=== PATIENT | male | born 1995 | race Caucasian/White ===

== ENCOUNTER 2019-10-14 19:30 | Emergency (ER) | payer BC ==
[2019-10-14 19:55] VITALS: BP 146/88
[2019-10-14] MEDS ORDERED: Acetaminophen TAB* 325 MG PO ONE (20:55)
--- NOTE | 2019-10-14 21:06 | UC ---
Minor Trauma HPI - HPI Summary HPI Summary: 24 yo male slipped on ice around 4 pm today struck back of head no LOC moderate pain and severe nausea right after fall now only mild nausea and 4/10 pain was carrying keys in left hand sustained a PW palm of his left hand now with numbness LMF and painful ROM left MF he is right handed - History of Current Complaint Chief Complaint: UCGeneralIllness Stated Complaint: HEAD INJURY/PALM OF LEFT HAND LAC Time Seen by Provider: 10/14/19 20:12 Hx Obtained From: Patient Onset/Duration: Sudden Onset, Lasting Hours Severity Initially: Moderate Severity Currently: Mild Pain Intensity: 4 Pain Scale Used: 0-10 Numeric Mechanism Of Injury: Fall From A Standing Position Aggravating Factor(s): Movement - left fingers Alleviating Factor(s): Rest Associated Signs And Symptoms: Negative: Loss Of Consciousness, Ecchymosis, Swelling Body - Head: 1 - PW - Risk Factors Penetrating Injury Risk Factors: Negative - Allergies/Home Medications Allergies/Adverse Reactions: Allergies Allergy/AdvReac Type Severity Reaction Status Date / Time No Known Allergies Allergy Verified 10/14/19 19:48 Home Medications: Home Medications SUMAtriptan TAB* [Imitrex TAB*] 25 mg PO SEE INSTRUCTIONS 10/14/19 [History Confirmed 10/14/19] PMH/Surg Hx/FS Hx/Imm Hx Previously Healthy: Yes - Surgical History Surgical History: None - Family History Known Family History: Positive: Non-Contributory - Social History Alcohol Use: Occasionally Substance Use Type: None Smoking Status (MU): Never Smoked Tobacco Review of Systems All Other Systems Reviewed And Are Negative: Yes Constitutional: Positive: Negative Skin: Positive: Negative Eyes: Positive: Negative ENT: Positive: Negative Respiratory: Positive: Negative Cardiovascular: Positive: Negative Gastrointestinal: Positive: Nausea - mild Genitourinary: Positive: Negative Musculoskeletal: Positive: Decreased ROM - left mf due to pain Neurological: Positive: Headache Psychological: Positive: Negative Physical Exam Triage Information Reviewed: Yes Appearance: Well-Appearing, No Pain Distress, Well-Nourished Vital Signs: Initial Vital Signs Temp 98.9 F 10/14/19 19:49 Pulse 99 10/14/19 19:49 Resp 16 10/14/19 19:49 BP 146/88 10/14/19 19:49 Pulse Ox 99 10/14/19 19:49 Vital Signs Reviewed: Yes Eyes: Positive: Conjunctiva Clear, Other: - EOMI/PERRL ENT: Positive: Hearing grossly normal, Pharynx normal, Uvula midline. Negative : Nasal congestion, Nasal drainage, Trismus, Muffled voice, Hoarse voice Dental Exam: Normal Neck: Positive: Supple, Nontender, No Lymphadenopathy Respiratory: Positive: Lungs clear, Normal breath sounds, No respiratory distress, No accessory muscle use Cardiovascular: Positive: RRR, No Murmur Musculoskeletal: Positive: ROM Intact, Other: - see image Neurological: Positive: Alert, Other: - GCS 15/15, non focal exam/normal gait Psychological Exam: Normal Skin Exam: Normal Minor Trauma Course/Dx - Differential Dx/Diagnosis Provider Diagnosis: Mild concussion, Puncture wound of left palm Discharge ED - Sign-Out/Discharge Documenting (check all that apply): Patient Departure All imaging exams completed and their final reports reviewed: No - Discharge Plan Condition: Stable Disposition: HOME Patient Education Materials: Concussion (ED), Puncture Wound (ED) Forms: *Work Release Referrals: [facility] [place] [facility] [Outside] (your BP was a little high here probably a good idea to find a PCP to follow it recheck in 2-20 weeks) Bhargav Moore MD [Medical Doctor] - 3 Days (if finger numbness persists) Additional Instructions: rest both physical and mental for one week recheck for new or worsening symptoms warm soapy soaks twice daily recheck for concerns of infection - Billing Disposition and Condition Condition: STABLE Disposition: Home
--- NOTE | 2019-10-15 08:53 | UC ---
- Progress Note Progress Note: Reviewed report of hand xray: no fracture seen per Dr. Barger. No change in management based on report. Course/Dx - Diagnoses Provider Diagnoses: Mild concussion, Puncture wound of left palm Discharge ED - Sign-Out/Discharge Documenting (check all that apply): Post-Discharge Follow Up All imaging exams completed and their final reports reviewed: Yes - Discharge Plan Condition: Stable Disposition: HOME Patient Education Materials: Puncture Wound (ED), Concussion (ED) Forms: *Work Release Referrals: [facility] [place] [facility] [Outside] (your BP was a little high here probably a good idea to find a PCP to follow it recheck in 2-20 weeks) Bhargav Moore MD [Medical Doctor] - 3 Days (if finger numbness persists) Additional Instructions: rest both physical and mental for one week recheck for new or worsening symptoms warm soapy soaks twice daily recheck for concerns of infection - Billing Disposition and Condition Condition: STABLE Disposition: Home
== END 2019-10-14 21:25 | disposition home or self-care (01) ==
LOC: UCCORT 19:30
DX: S06.0X0A Concussion without loss of consciousness, initial encounter (principal); S61.432A Puncture wound without foreign body of left hand, initial encounter; W01.10XA Fall on same level from slipping, tripping and stumbling with subsequent striking against unspecified object, initial encounter; Y92.9 Unspecified place or not applicable
CPT/HCPCS: 99202; A9270-GY; G0463